=== PATIENT | female | born 1960 | race Caucasian/White ===

== ENCOUNTER 2023-12-22 10:07 | Day surgery (SDC) | payer BC, OTHER ==
[2023-12-17 15:31] VITALS: BMI 32.3
[2023-12-22] MEDS ORDERED: NEO/POLYMYX B SULF/DEXAMETH OPHTHALMIC 5ML BOTTLE ONE (10:39)
[2023-12-22] MEDS ORDERED: BSS (NA/CA/MG/K) BALANCED SALT SOLUTION OPHTH SOLN 15 ML BOTTLE ONE (10:39)
[2023-12-22] MEDS ORDERED: TETRACAINE 0.5% OPHTH SOLN 2 ML BOTTLE ONE (10:39)
[2023-12-22] MEDS ORDERED: LIDOCAINE 1% P/F 10 MG/ML VIAL ONE (10:39)
[2023-12-22] MEDS ORDERED: CARBACHOL 0.01% INTRA-OCULAR 1.5 ML VIAL ONE (10:39)
[2023-12-22] MEDS: CYCLOPENTOLATE 2% OPHTH SOLN 2 ML BOTTLE ONE (10:40)
[2023-12-22] MEDS: CIPROFLOXACIN 0.3% EYE DROPS 5 ML BOTTLE ONE (10:40)
[2023-12-22] MEDS: TROPICAMIDE 1% OPHTH SOLN 15 ML BOTTLE ONE (10:40)
[2023-12-22] MEDS: PHENYLEPHRINE 2.5% OPTHALMIC DROP 2ML BOTTLE ONE (10:40)
[2023-12-22] MEDS ORDERED: MIDAZOLAM HCL 2 MG/2 ML SINGLE DOSE VIAL ONE (11:49)
[2023-12-22 12:50] VITALS: RESP 19; TEMP 97.9
[2023-12-22 12:56] VITALS: BP 118/68; PULSE 70
== END 2023-12-22 12:50 | disposition home or self-care (01) ==
LOC: FASU 10:07
PROVIDERS: ATTEND Ophthalmology
PROC: 08RK3JZ Replacement of Left Lens with Synthetic Substitute, Percutaneous Approach (ICD-10-PCS; principal; 2023-12-22 12:01)
DX: H26.8 Other specified cataract (principal)
CPT/HCPCS: 66984; V2632; 82962